=== PATIENT | male | born 1960 | race Caucasian/White ===

== ENCOUNTER 2019-06-20 14:23 | Inpatient (IN) | payer OTHER ==
[~2019-06-20] VITALS: Ht 154.9 cm; Wt 64.6 kg
[2019-06-20 14:29] VITALS: BP 155/85
[2019-06-20 15:10] LABS: HEMATOCRIT 43.1 % (42.0-52.0); HEMOGLOBIN 14.3 g/dl (14.0-18.0); MEAN CORPUSCULAR HGB 31.8 pg (27.0-31.0); MEAN CORPUSCULAR HGB CONC 33.2 g/dl (33.0-37.0); MEAN PLATELET VOLUME 11.1 fl (9.6-12.3); PLATELET COUNT AUTOMATED 264 10*3/uL (130-400); RED BLOOD COUNT 4.49 10*6/uL (4.50-5.90); RED CELL DISTRI WIDTH 12.3 % (0-14.5); WHITE BLOOD COUNT 23.7 10*3/uL (4.8-10.8)
[2019-06-20 15:28] LABS: ACT PARTIAL THROMBO TIME 31.6 SECONDS (20.0-32.1); INTERNATIONAL NORM RATIO 1.1 (2.0-3.5)
[2019-06-20 15:29] LABS: ALBUMIN 3.3 gm/dl (3.1-4.5); ALKALINE PHOSPHATASE 110 U/L (45-117); BUN 10 mg/dl (7-24); CHLORIDE 103 mmol/L (98-107); POTASSIUM 3.7 mmol/L (3.5-5.1); SGOT/AST 18 IU/L (3-35); SGPT/ALT 26 U/L (12-78); SODIUM 138 mmol/L (136-145); TOTAL PROTEIN 7.7 gm/dL (6.4-8.2)
[2019-06-20 15:30] LABS: BASOPHILS 1 % (0-1); PLATELET SUFFICIENCY NORMAL (NORMAL); TOTAL CELLS COUNTED 100 #CELLS; TROPONIN I < 0.015 ng/ml (<0.045)
[2019-06-20 16:18] VITALS: BP 150/80
[2019-06-20 18:00] VITALS: BP 172/96
--- NOTE | 2019-06-20 18:10 | NUR ---
A 58, admitted to , under the services of DEEPA Yanes DO with a diagnosis of HYPOXIA,SEPSIS,PNEUMONITIS. Chief complaint is SOB. Patient arrived via bed from ER. Monitor applied. Initial assessment completed. Vital signs taken and recorded. DEEPA YANES DO notified of admission to the unit. Orders received. See assessment for past medical history, medications and allergies. Patient and/or family oriented to unit. [facility]. Clothing/patient valuable form completed. JOCE DENT
[2019-06-20 20:00] VITALS: BP 141/79
[2019-06-21] VITALS: BP 138/77
--- NOTE | 2019-06-21 06:14 | NUR ---
PATIENT SLEPT THROUGH NIGHT WITH NO COMPLAINTS. NASAL CANNULA AT 3L. PATIENT WEARING. CALL LIGHT WITHIN REACH. WILL CONTINUE TO MONITOR.
[2019-06-21 07:19] LABS: HEMATOCRIT 38.8 % (42.0-52.0); HEMOGLOBIN 12.7 g/dl (14.0-18.0); MEAN CELL VOLUME 96.3 fl (80.0-94.0); MEAN CORPUSCULAR HGB 31.5 pg (27.0-31.0); MEAN CORPUSCULAR HGB CONC 32.7 g/dl (33.0-37.0); MEAN PLATELET VOLUME 11.4 fl (9.6-12.3); PLATELET COUNT AUTOMATED 251 10*3/uL (130-400); RED BLOOD COUNT 4.03 10*6/uL (4.50-5.90); RED CELL DISTRI WIDTH 12.4 % (0-14.5); WHITE BLOOD COUNT 19.7 10*3/uL (4.8-10.8)
[2019-06-21 07:28] LABS: BUN 11 mg/dl (7-24); CHLORIDE 107 mmol/L (98-107); CREATININE 0.67 mg/dL (0.70-1.30); POTASSIUM 3.9 mmol/L (3.5-5.1); SODIUM 139 mmol/L (136-145)
[2019-06-21 07:31] LABS: CHOLESTEROL 133 mg/dL (<200); HDL CHOLESTEROL 35 mg/dl (40-60); LDL CHOLESTEROL 85 mg/dL (9-159); PHOSPHOROUS 2.2 mg/dL (2.5-4.9); TRIGLYCERIDES 66 mg/dl (<150); VLDL CHOLESTEROL 13 mg/dL (6-40)
[2019-06-21 07:51] LABS: PLATELET SUFFICIENCY NORMAL (NORMAL); TOTAL CELLS COUNTED 100 #CELLS
[2019-06-21 08:00] VITALS: BP 132/56
[2019-06-21 08:56] LABS: VITAMIN D, 25-HYDROXY 11.9 ng/mL (30-100)
--- NOTE | 2019-06-21 09:00 | NUR ---
Director Of Testing in to talk to patient. Patient states lives at home with alone. There are no steps in the home. Physician: none at present Pharmacy: none at present Home health services: none Patient's level of ADLs: INDEPENDENT Patient has working utilities: all working DME: none Follow-up physician's appointment after d/c: will be made by hospitalist nurse director upon discharge with doctor of patient's choice Does patient want to access PORTAL?: no Discharge plan discussed with patient, he states he lives at home alone, is independent in adls and ambulation, works, drives, he states he will return home when medically stable and denies any home needs. BRENDON LUKE
[2019-06-21 12:00] VITALS: BP 142/68
--- NOTE | 2019-06-21 14:45 | NUR ---
NOTIFIED OF CONSULT
[2019-06-21 16:00] VITALS: BP 147/67
--- NOTE | 2019-06-21 16:10 | NUR ---
Nursing screen received and chart reviewed. Patient admitted for SOB. If patient has a decline in ADLs, transfers, or functional mobility, please send OT orders. Thank you. Lyly Valle, OTR/L
[2019-06-21 20:00] VITALS: BP 128/65
--- NOTE | 2019-06-21 20:36 | NUR ---
PATIENT COMPLAINING OF HEARTBURN. NOTIFIED DR KHAN AND ORDERS RECIEVED TO PUT IN FOR TUMS.
[2019-06-22] VITALS: BP 149/65
--- NOTE | 2019-06-22 01:05 | NUR ---
Patient resting quietly with no c/o discomfort. Respirations easy and regular. Vital signs stable. No overt distress. DENNIS RIVERA
[2019-06-22 06:33] LABS: BASO % 0.2 % (0.0-1.0); EOS # 0.1 10*3/uL (0.0-0.4); EOS % 0.2 % (1.0-4.0); HEMATOCRIT 38.4 % (42.0-52.0); HEMOGLOBIN 12.7 g/dl (14.0-18.0); LYMPH % 4.9 % (27.0-41.0); MEAN CELL VOLUME 96.2 fl (80.0-94.0); MEAN CORPUSCULAR HGB 31.8 pg (27.0-31.0); MEAN CORPUSCULAR HGB CONC 33.1 g/dl (33.0-37.0); MEAN PLATELET VOLUME 12.1 fl (9.6-12.3); MONO # 0.8 10*3/uL (0.1-1.0); NEUT # 18.7 10*3/uL (2.3-7.9); NEUT % 89.7 % (47.0-73.0); PLATELET COUNT AUTOMATED 281 10*3/uL (130-400); RED BLOOD COUNT 3.99 10*6/uL (4.50-5.90); RED CELL DISTRI WIDTH 12.7 % (0-14.5); WHITE BLOOD COUNT 20.9 10*3/uL (4.8-10.8)
[2019-06-22 07:06] LABS: BUN 13 mg/dl (7-24); CHLORIDE 109 mmol/L (98-107); POTASSIUM 3.8 mmol/L (3.5-5.1); SODIUM 142 mmol/L (136-145)
[2019-06-22 07:07] LABS: CREATININE 0.68 mg/dL (0.70-1.30)
--- NOTE | 2019-06-22 07:38 | NUR ---
PHYSICAL THERAPY Screen received pt from home admitted with sepsis and SOB please consult PT if pt's functional status declines below baseline, thank you. Lissa Adler PT
[2019-06-22 08:00] VITALS: BP 145/71
--- NOTE | 2019-06-22 08:00 | NUR ---
IN TO ROOM. PATIENT AWAKE, ALERT AND ORIENTED SITTING UP IN BED. NO STATED COMPLAINTS AT THIS TIME. PT DENIES ANY PAIN. MOIST COUGH NOTED. BED IN LOWEST LOCKED POSITION AND CALL LIGHT WITHIN REACH. WILL CONTINUE TO MONITOR.
--- NOTE | 2019-06-22 09:00 | NUR ---
case management visits with patient, he states he will reutrn home when medically stable and denies any home needs
--- NOTE | 2019-06-22 11:00 | NUR ---
PT COMPLAINS OF SORE IN MOUTH. DR DILL NOTIFIED OF COMPLAINT.
[2019-06-22 12:00] VITALS: BP 138/69
--- NOTE | 2019-06-22 15:37 | NUR ---
PT GIVEN TUMS FOR HEARTBURN. WILL MONITOR FOR EFFECTIVENESS. PT LYING IN BED. HOB ELEVATED. RESPIRATIONS UNLABORED ON 2L NC. CALL LIGHT IN REACH.
[2019-06-22 16:00] VITALS: BP 123/50; BP 142/82
--- NOTE | 2019-06-22 16:30 | NUR ---
Hep Lock discontinued to right antecubital due to site leaking. Site asymptomatic. Pressure applied. Sterile dressing applied. MIMI SCHWARTZ
--- NOTE | 2019-06-22 16:37 | NUR ---
TUMS EFFECTIVE PER PT.
--- NOTE | 2019-06-22 16:40 | NUR ---
[facility] STUDENT NURSE STATES THAT THEY WILL RESTART A NEW SITE ON PATIENT WITH INSTRUCTOR. PT IS AGREEABLE.
--- NOTE | 2019-06-22 17:00 | NUR ---
PT HAS NEW IV SITE IN RIGHT ARM.
[2019-06-22 20:00] VITALS: BP 156/82
[2019-06-23] VITALS: BP 153/88
--- NOTE | 2019-06-23 05:47 | NUR ---
Hep Lock discontinued. Site asymptomatic. Pressure applied. Sterile dressing applied. GAIL CHANEL IV started right antecubital with #22 protective cath after 0 attempts. Site prepped with Chloroprep. Sterile dressing applied. Patient tolerated procedure well. GAIL CHANEL
[2019-06-23 06:35] LABS: HEMATOCRIT 41.1 % (42.0-52.0); HEMOGLOBIN 13.4 g/dl (14.0-18.0); MEAN CELL VOLUME 96.3 fl (80.0-94.0); MEAN CORPUSCULAR HGB 31.4 pg (27.0-31.0); MEAN CORPUSCULAR HGB CONC 32.6 g/dl (33.0-37.0); MEAN PLATELET VOLUME 11.8 fl (9.6-12.3); PLATELET COUNT AUTOMATED 332 10*3/uL (130-400); RED BLOOD COUNT 4.27 10*6/uL (4.50-5.90); RED CELL DISTRI WIDTH 12.9 % (0-14.5); WHITE BLOOD COUNT 21.7 10*3/uL (4.8-10.8)
[2019-06-23 07:38] LABS: ATYPICAL LYMPHS 4 % (0-0); PLATELET SUFFICIENCY NORMAL (NORMAL); TOTAL CELLS COUNTED 100 #CELLS
[2019-06-23 08:00] VITALS: BP 153/81
--- NOTE | 2019-06-23 08:14 | NUR ---
TOOK OVER CARE OF PT AT THIS TIME. PT RESTING IN BED, HOB ELEVATED. PT IS TAKING A BREATHING TREATMENT AT THIS TIME. PT DENIES NEEDING ANYTHING. NO S/S OF DISTRESS. CALL LIGHT IN REACH.
[2019-06-23 12:00] VITALS: BP 170/90
[2019-06-23 13:12] VITALS: BP 158/78
--- NOTE | 2019-06-23 13:12 | NUR ---
PT RESTING IN BED AT THIS TIME. NO S/S OF DISTRESS. BP OBTAINED MANUALLY. PT RESPIRATIONS ARE UNLABORED ON ROOM AIR. POX IS 95% ON ROOM AIR. WILL CONTINUE TO MONITOR. CALL LIGHT IN REACH.
[2019-06-23 16:00] VITALS: BP 155/76
[2019-06-23 20:00] VITALS: BP 146/59
[2019-06-24] VITALS: BP 133/74
--- NOTE | 2019-06-24 06:29 | NUR ---
[facility] [phone]- "PT'S RIDE HOME"
[2019-06-24 06:30] LABS: HEMATOCRIT 40.9 % (42.0-52.0); HEMOGLOBIN 13.4 g/dl (14.0-18.0); MEAN CELL VOLUME 95.8 fl (80.0-94.0); MEAN CORPUSCULAR HGB 31.4 pg (27.0-31.0); MEAN CORPUSCULAR HGB CONC 32.8 g/dl (33.0-37.0); MEAN PLATELET VOLUME 11.7 fl (9.6-12.3); PLATELET COUNT AUTOMATED 351 10*3/uL (130-400); RED BLOOD COUNT 4.27 10*6/uL (4.50-5.90); RED CELL DISTRI WIDTH 12.9 % (0-14.5); WHITE BLOOD COUNT 21.4 10*3/uL (4.8-10.8)
[2019-06-24 07:56] LABS: ATYPICAL LYMPHS 1 % (0-0); PLATELET SUFFICIENCY NORMAL (NORMAL); TOTAL CELLS COUNTED 100 #CELLS
[2019-06-24 08:00] VITALS: BP 157/88
--- NOTE | 2019-06-24 11:50 | NUR ---
ASSESS FOR HOME OXYGEN ROOM AIR AT REST: SPO2 97% HR 98 RR 20 BP 148/74 ROOM AIR WITH AMBULATION: SPO2 90-94% HR 106-118 ROOM AIR RECOVERY: SPO2 95% HR 106 RR 24 BP 159/76 PT. DID NOT REQUIRE SUPPLEMENTAL O2 AT REST OR DURING AMBULATION. RESULTS REPORTED TO DR. JOHANSEN.
[2019-06-24 12:00] VITALS: BP 142/79
[2019-06-24] MEDS ORDERED: SYMB80 INH (12:07)
[2019-06-24] MEDS ORDERED: PREDNISONE10 MG PO (12:07)
[2019-06-24] MEDS ORDERED: VITAMIN D32000 UNI1 PO (12:07)
[2019-06-24] MEDS ORDERED: ZITHROMAX250 MG PO (12:07)
[2019-06-24] MEDS ORDERED: CLOTRIMAZOLE TR10 MG PO (12:07)
[2019-06-24] MEDS ORDERED: PROAIR HFA8.5 GM INH (12:07)
[2019-06-24] MEDS ORDERED: MUCINEX ER600 MG PO (12:07)
[2019-06-24] MEDS ORDERED: Ipratropium Brom3 ML INH (12:12)
--- NOTE | 2019-06-24 13:50 | NUR ---
Discharge instructions reviewed with patient/family. Patient receptive and verbalizes understanding. Follow-up care arranged. Written instructions given to patient/family. HEPLOCK DISCONTINUED. PRESCRIPTIONS GIVEN. PATIENT AMBULATORY OFF FLOOR. MAHI ALONZO
== END 2019-06-24 13:50 | disposition home or self-care (01) | DRG 871 ==
LOC: ED 14:23 → 4E 16:40 → EDHOLD 16:40 → 4E 17:48 → 5E 06-24 08:17
PROVIDERS: Emergency Medicine; Internal Medicine; ADMIT Internal Medicine
DX: A41.9 Sepsis, unspecified organism (principal); J18.9 Pneumonia, unspecified organism; J96.01 Acute respiratory failure with hypoxia; F17.210 Nicotine dependence, cigarettes, uncomplicated; D53.9 Nutritional anemia, unspecified; E83.39 Other disorders of phosphorus metabolism; J43.9 Emphysema, unspecified; R73.9 Hyperglycemia, unspecified; J20.9 Acute bronchitis, unspecified; E83.41 Hypermagnesemia; T38.0X5A Adverse effect of glucocorticoids and synthetic analogues, initial encounter; Y92.89 Other specified places as the place of occurrence of the external cause; Z71.6 Tobacco abuse counseling; Z87.442 Personal history of urinary calculi; Z80.3 Family history of malignant neoplasm of breast

== ENCOUNTER → 2019-07-06 | Outpatient (CLI) | payer OTHER ==
[~2019-07-06] MED LIST: CLOTRIMAZOLE TR10 MG PO; Ipratropium Brom3 ML INH; MUCINEX ER600 MG PO; PREDNISONE10 MG PO; PROAIR HFA8.5 GM INH; SYMB80 INH; VITAMIN D32000 UNI1 PO; ZITHROMAX250 MG PO
[2019-07-06 18:26] LABS: BASO # 0.1 10*3/uL (0.0-0.1); BASO % 0.7 % (0.0-1.0); EOS # 0.1 10*3/uL (0.0-0.4); EOS % 1.2 % (1.0-4.0); HEMATOCRIT 41.7 % (42.0-52.0); HEMOGLOBIN 13.4 g/dl (14.0-18.0); LYMPH # 1.7 10*3/uL (1.3-4.4); LYMPH % 18.1 % (27.0-41.0); MEAN CELL VOLUME 97.4 fl (80.0-94.0); MEAN CORPUSCULAR HGB 31.3 pg (27.0-31.0); MEAN CORPUSCULAR HGB CONC 32.1 g/dl (33.0-37.0); MEAN PLATELET VOLUME 10.8 fl (9.6-12.3); MONO # 1.5 10*3/uL (0.1-1.0); MONO % 16.3 % (3.0-9.0); NEUT # 5.8 10*3/uL (2.3-7.9); NEUT % 63.3 % (47.0-73.0); PLATELET COUNT AUTOMATED 341 10*3/uL (130-400); RED BLOOD COUNT 4.28 10*6/uL (4.50-5.90); RED CELL DISTRI WIDTH 13.4 % (0-14.5); WHITE BLOOD COUNT 9.2 10*3/uL (4.8-10.8)
[2019-07-06 18:40] LABS: BUN 13 mg/dl (7-24); CHLORIDE 105 mmol/L (98-107); POTASSIUM 3.5 mmol/L (3.5-5.1); SODIUM 138 mmol/L (136-145)
== END | disposition home or self-care (01) ==
LOC: LAB 17:39
PROVIDERS: Internal Medicine
DX: A41.9 Sepsis, unspecified organism (principal)

== ENCOUNTER 2021-03-24 11:12 | Inpatient (IN) | payer OTHER ==
[~2021-03-24] VITALS: Ht 180.3 cm; Wt 56.9 kg
[2021-03-24 11:33] VITALS: BP 161/82; BP 98/73
[2021-03-24 11:45] LABS: ACT PARTIAL THROMBO TIME 26.5 SECONDS (20.0-32.1); INTERNATIONAL NORM RATIO 1.1 (2.0-3.5)
[2021-03-24 11:52] LABS: ALBUMIN 2.9 gm/dl (3.1-4.5); ALKALINE PHOSPHATASE 108 U/L (45-117); BUN 14 mg/dl (7-24); CHLORIDE 99 mmol/L (98-107); CREATININE 0.63 mg/dL (0.70-1.30); POTASSIUM 4.3 mmol/L (3.5-5.1); SGOT/AST 17 IU/L (3-35); SGPT/ALT 22 U/L (12-78); SODIUM 136 mmol/L (136-145); TOTAL PROTEIN 8.1 gm/dL (6.4-8.2)
[2021-03-24 11:53] LABS: TROPONIN I 0.024 ng/ml (<0.045)
[2021-03-24 12:01] LABS: MEAN CELL VOLUME 95.8 fl (80.0-94.0); MEAN CORPUSCULAR HGB 31.9 pg (27.0-31.0); MEAN CORPUSCULAR HGB CONC 33.3 g/dl (33.0-37.0); MEAN PLATELET VOLUME 11.9 fl (9.6-12.3); PLATELET COUNT AUTOMATED 253 10*3/uL (130-400); RED CELL DISTRI WIDTH 11.9 % (0-14.5); WHITE BLOOD COUNT 19.9 10*3/uL (4.8-10.8)
[2021-03-24 12:19] LABS: PLATELET SUFFICIENCY NORMAL (NORMAL); TOTAL CELLS COUNTED 100 #CELLS
[2021-03-24 16:23] LABS: BILIRUBIN 1+ (Negative); BLOOD Trace-Lysed (Negative); CLARITY Clear (Clear); COLOR Dark Yellow (Yellow); GLUCOSE Negative (Negative); KETONE Trace (Negative); LEUKO ESTERASE Negative (Negative); NITRITE Negative (Negative); PH 5.5 (4.5-8.0); SPECIFIC GRAVITY >= 1.030 (1.001-1.030)
[2021-03-24 16:43] LABS: MUCOUS 1+
[2021-03-24 20:03] VITALS: BP 149/76
[2021-03-24 20:15] VITALS: BP 154/80
[2021-03-24] MEDS ORDERED: VENT7GM INH (20:42)
[2021-03-25] VITALS: BP 147/71
[2021-03-25 06:50] LABS: BASO % 0.2 % (0.0-1.0); HEMATOCRIT 40.7 % (42.0-52.0); LYMPH # 0.7 10*3/uL (1.3-4.4); LYMPH % 5.4 % (27.0-41.0); MEAN CELL VOLUME 97.6 fl (80.0-94.0); MEAN CORPUSCULAR HGB 31.9 pg (27.0-31.0); MEAN CORPUSCULAR HGB CONC 32.7 g/dl (33.0-37.0); MEAN PLATELET VOLUME 11.6 fl (9.6-12.3); MONO # 1.4 10*3/uL (0.1-1.0); MONO % 10.7 % (3.0-9.0); NEUT # 10.8 10*3/uL (2.3-7.9); NEUT % 83.3 % (47.0-73.0); PLATELET COUNT AUTOMATED 244 10*3/uL (130-400); RED BLOOD COUNT 4.17 10*6/uL (4.50-5.90); RED CELL DISTRI WIDTH 11.9 % (0-14.5); WHITE BLOOD COUNT 12.9 10*3/uL (4.8-10.8)
[2021-03-25 07:08] LABS: ALBUMIN 2.4 gm/dl (3.1-4.5); BUN 15 mg/dl (7-24); CHLORIDE 99 mmol/L (98-107); POTASSIUM 4.6 mmol/L (3.5-5.1); SGOT/AST 11 IU/L (3-35); SGPT/ALT 21 U/L (12-78); SODIUM 136 mmol/L (136-145)
[2021-03-25 07:16] LABS: ALKALINE PHOSPHATASE 91 U/L (45-117); CHOLESTEROL 148 mg/dL (<200); CREATININE 0.48 mg/dL (0.70-1.30); LDL CHOLESTEROL 98 mg/dL (9-159); TOTAL PROTEIN 6.5 gm/dL (6.4-8.2); TRIGLYCERIDES 57 mg/dl (<150)
[2021-03-25 08:00] VITALS: BP 134/74
[2021-03-25 12:00] VITALS: BP 146/84
[2021-03-25 12:12] LABS: BILIRUBIN Negative (Negative); BLOOD Negative (Negative); CLARITY Clear (Clear); COLOR Yellow (Yellow); GLUCOSE Negative (Negative); KETONE Negative (Negative); LEUKO ESTERASE Negative (Negative); NITRITE Negative (Negative); SPECIFIC GRAVITY >= 1.030 (1.001-1.030)
[2021-03-25 14:08] LABS: BACTERIA TRACE; MUCOUS 1+
[2021-03-25 16:00] VITALS: BP 158/74
[2021-03-25 20:00] VITALS: BP 139/77
[2021-03-26] VITALS: BP 130/71
[2021-03-26 06:28] LABS: BASO % 0.2 % (0.0-1.0); HEMATOCRIT 40.2 % (42.0-52.0); LYMPH % 7.1 % (27.0-41.0); MEAN CELL VOLUME 98.3 fl (80.0-94.0); MEAN CORPUSCULAR HGB CONC 32.6 g/dl (33.0-37.0); MEAN PLATELET VOLUME 11.1 fl (9.6-12.3); MONO % 7.7 % (3.0-9.0); NEUT # 11.3 10*3/uL (2.3-7.9); NEUT % 84.3 % (47.0-73.0); PLATELET COUNT AUTOMATED 288 10*3/uL (130-400); RED BLOOD COUNT 4.09 10*6/uL (4.50-5.90); RED CELL DISTRI WIDTH 11.8 % (0-14.5); WHITE BLOOD COUNT 13.4 10*3/uL (4.8-10.8)
[2021-03-26 06:50] LABS: BUN 15 mg/dl (7-24); CHLORIDE 99 mmol/L (98-107); POTASSIUM 4.3 mmol/L (3.5-5.1); SODIUM 137 mmol/L (136-145)
[2021-03-26 06:51] LABS: CREATININE 0.52 mg/dL (0.70-1.30)
[2021-03-26 08:00] VITALS: BP 125/75
[2021-03-26 12:00] VITALS: BP 135/75
[2021-03-26 16:00] VITALS: BP 129/95
[2021-03-26 20:00] VITALS: BP 162/81
[2021-03-27] VITALS: BP 114/54; BP 143/82
[2021-03-27 06:10] LABS: BUN 13 mg/dl (7-24); CHLORIDE 100 mmol/L (98-107); POTASSIUM 4.3 mmol/L (3.5-5.1); SODIUM 138 mmol/L (136-145)
[2021-03-27 06:18] LABS: BASO % 0.3 % (0.0-1.0); EOS % 0.2 % (1.0-4.0); HEMATOCRIT 42.8 % (42.0-52.0); LYMPH # 0.8 10*3/uL (1.3-4.4); LYMPH % 5.9 % (27.0-41.0); MEAN CELL VOLUME 97.5 fl (80.0-94.0); MEAN CORPUSCULAR HGB 31.2 pg (27.0-31.0); MEAN PLATELET VOLUME 11.4 fl (9.6-12.3); MONO # 0.5 10*3/uL (0.1-1.0); MONO % 3.5 % (3.0-9.0); NEUT # 12.4 10*3/uL (2.3-7.9); NEUT % 88.6 % (47.0-73.0); PLATELET COUNT AUTOMATED 324 10*3/uL (130-400); RED BLOOD COUNT 4.39 10*6/uL (4.50-5.90); RED CELL DISTRI WIDTH 11.7 % (0-14.5)
[2021-03-27 08:00] VITALS: BP 159/67
[2021-03-27 12:00] VITALS: BP 147/80
[2021-03-27 16:00] VITALS: BP 128/88
[2021-03-27 20:00] VITALS: BP 148/88
[2021-03-28] VITALS: BP 129/72
[2021-03-28 06:50] LABS: HEMATOCRIT 42.9 % (42.0-52.0); MEAN CELL VOLUME 98.2 fl (80.0-94.0); MEAN CORPUSCULAR HGB 31.8 pg (27.0-31.0); MEAN CORPUSCULAR HGB CONC 32.4 g/dl (33.0-37.0); MEAN PLATELET VOLUME 10.8 fl (9.6-12.3); PLATELET COUNT AUTOMATED 346 10*3/uL (130-400); RED BLOOD COUNT 4.37 10*6/uL (4.50-5.90); RED CELL DISTRI WIDTH 11.9 % (0-14.5); WHITE BLOOD COUNT 17.1 10*3/uL (4.8-10.8)
[2021-03-28 07:00] LABS: ALBUMIN 2.5 gm/dl (3.1-4.5); BUN 15 mg/dl (7-24); CHLORIDE 102 mmol/L (98-107); POTASSIUM 4.2 mmol/L (3.5-5.1); SODIUM 140 mmol/L (136-145)
[2021-03-28 07:04] LABS: ALKALINE PHOSPHATASE 78 U/L (45-117); CREATININE 0.54 mg/dL (0.70-1.30); SGOT/AST 12 IU/L (3-35); SGPT/ALT 40 U/L (12-78)
[2021-03-28 07:51] LABS: ATYPICAL LYMPHS 2 % (0-0); PLATELET SUFFICIENCY NORMAL (NORMAL); TOTAL CELLS COUNTED 100 #CELLS
[2021-03-28 08:00] VITALS: BP 150/85
[2021-03-28] MEDS ORDERED: PREDNISONE10 MG PO (11:38)
[2021-03-28] MEDS ORDERED: LEVOFLOXACIN500 MG PO (11:38)
[2021-03-28] MEDS ORDERED: SYMB160 INH (11:40)
[2021-03-28 12:00] VITALS: BP 154/84
== END 2021-03-28 18:37 | disposition home or self-care (01) | DRG 871 ==
LOC: ED 11:12 → EDHOLD 13:55 → 4E 13:55 → EDHOLD 13:56 → 4E 17:35
PROVIDERS: Internal Medicine; Student in an Organized Health Care Education/Training Program; ADMIT Internal Medicine; ATTEND Internal Medicine
DX: A41.9 Sepsis, unspecified organism (principal); J96.01 Acute respiratory failure with hypoxia; J18.9 Pneumonia, unspecified organism; J44.1 Chronic obstructive pulmonary disease with (acute) exacerbation; J44.0 Chronic obstructive pulmonary disease with (acute) lower respiratory infection; R73.9 Hyperglycemia, unspecified; Z20.822 Contact with and (suspected) exposure to COVID-19; E55.9 Vitamin D deficiency, unspecified; F17.210 Nicotine dependence, cigarettes, uncomplicated; D64.9 Anemia, unspecified; Z71.6 Tobacco abuse counseling; Z79.899 Other long term (current) drug therapy; Z80.3 Family history of malignant neoplasm of breast; Z79.51 Long term (current) use of inhaled steroids

== ENCOUNTER 2021-05-25 13:52 | Inpatient (IN) | payer OTHER ==
[2021-05-25] VITALS (8 sets, daily range): BP systolic 119–167; BP diastolic 71–100
[~2021-05-25] VITALS: Ht 180.3 cm; Wt 54.1 kg
[~2021-05-25 13:52] MED LIST changes: +LEVOFLOXACIN500 MG PO; +SYMB160 INH; +VENT7GM INH
[2021-05-25 14:15] LABS: ARTERIAL BLOOD GAS PH 7.281 (7.35-7.45); ARTERIAL BLOOD GAS PO2 153.2 (80-90)
[2021-05-25] MEDS ORDERED: BUDESONIDE0.5 MG/2 M INH (14:15)
[2021-05-25] MEDS ORDERED: BUSPAR5 MG PO ×2 (14:16→18:20)
[2021-05-25 14:36] LABS: BASO % 0.2 % (0.0-1.0); EOS % 0.1 % (1.0-4.0); HEMATOCRIT 46.4 % (42.0-52.0); LYMPH # 0.6 10*3/uL (1.3-4.4); LYMPH % 3.8 % (27.0-41.0); MEAN CELL VOLUME 93.9 fl (80.0-94.0); MEAN CORPUSCULAR HGB 31.4 pg (27.0-31.0); MEAN CORPUSCULAR HGB CONC 33.4 g/dl (33.0-37.0); MEAN PLATELET VOLUME 10.6 fl (9.6-12.3); MONO # 1.2 10*3/uL (0.1-1.0); MONO % 8.4 % (3.0-9.0); NEUT # 12.8 10*3/uL (2.3-7.9); NEUT % 87.2 % (47.0-73.0); PLATELET COUNT AUTOMATED 291 10*3/uL (130-400); RED BLOOD COUNT 4.94 10*6/uL (4.50-5.90); RED CELL DISTRI WIDTH 13.8 % (0-14.5); WHITE BLOOD COUNT 14.6 10*3/uL (4.8-10.8)
[2021-05-25 14:46] LABS: ACT PARTIAL THROMBO TIME 31.6 SECONDS (20.0-32.1); INTERNATIONAL NORM RATIO 1.1 (2.0-3.5)
[2021-05-25 14:51] LABS: ALBUMIN 3.4 gm/dl (3.1-4.5); ALKALINE PHOSPHATASE 114 U/L (45-117); BUN 6 mg/dl (7-24); CHLORIDE 102 mmol/L (98-107); CPK 69 U/L (39-308); CREATININE 0.52 mg/dL (0.70-1.30); POTASSIUM 4.2 mmol/L (3.5-5.1); SGOT/AST 10 IU/L (3-35); SGPT/ALT 18 U/L (12-78); SODIUM 137 mmol/L (136-145); TOTAL PROTEIN 7.2 gm/dL (6.4-8.2)
[2021-05-25 17:49] LABS: BILIRUBIN Negative (Negative); BLOOD Negative (Negative); CLARITY Clear (Clear); COLOR Yellow (Yellow); GLUCOSE Negative (Negative); KETONE Negative (Negative); LEUKO ESTERASE Negative (Negative); NITRITE Negative (Negative); UROBILINOGEN 0.2 E.U./dl (0.0-1.0)
[2021-05-25] MEDS ORDERED: PREDNISONE10 M1 PO (18:15)
[2021-05-25] MEDS ORDERED: PREDNISONE10 MG PO (18:20)
[2021-05-25] MEDS ORDERED: Ipratropium Brom3 ML INH (18:22)
[2021-05-25] MEDS ORDERED: PULMICORT RESP0.5 M1 INH (18:22)
[2021-05-25] MEDS ORDERED: VENT7GM INH (18:22)
[2021-05-25 18:30] LABS: BACTERIA TRACE; EPITHELIAL CELLS 0-2; WBC 0-2 wbc/hpf (0-5)
[2021-05-25] MEDS ORDERED: BUSPIRONE HCL10 MG PO (23:17)
[2021-05-25] MEDS ORDERED: PREDNISONE5 MG PO (23:20)
[2021-05-26] VITALS: BP 160/82
[2021-05-26 06:57] LABS: ALBUMIN 2.8 gm/dl (3.1-4.5); BUN 7 mg/dl (7-24); CHLORIDE 105 mmol/L (98-107); CREATININE 0.46 mg/dL (0.70-1.30); SGOT/AST 4 IU/L (3-35); SGPT/ALT 15 U/L (12-78); SODIUM 140 mmol/L (136-145); TOTAL PROTEIN 6.1 gm/dL (6.4-8.2)
[2021-05-26 06:58] LABS: ALKALINE PHOSPHATASE 85 U/L (45-117)
[2021-05-26 06:59] LABS: HEMATOCRIT 40.6 % (42.0-52.0); LYMPH # 0.4 10*3/uL (1.3-4.4); LYMPH % 6.7 % (27.0-41.0); MEAN CELL VOLUME 96.9 fl (80.0-94.0); MEAN CORPUSCULAR HGB 31.3 pg (27.0-31.0); MEAN CORPUSCULAR HGB CONC 32.3 g/dl (33.0-37.0); MEAN PLATELET VOLUME 10.9 fl (9.6-12.3); MONO # 0.5 10*3/uL (0.1-1.0); MONO % 9.8 % (3.0-9.0); NEUT # 4.3 10*3/uL (2.3-7.9); NEUT % 83.1 % (47.0-73.0); PLATELET COUNT AUTOMATED 239 10*3/uL (130-400); RED BLOOD COUNT 4.19 10*6/uL (4.50-5.90); RED CELL DISTRI WIDTH 13.6 % (0-14.5); WHITE BLOOD COUNT 5.2 10*3/uL (4.8-10.8)
[2021-05-26 08:25] VITALS: BP 168/80
[2021-05-26 08:34] LABS: VITAMIN D, 25-HYDROXY 10.4 ng/mL (30-100)
[2021-05-26 09:20] VITALS: BP 150/76
[2021-05-26 11:58] VITALS: BP 149/83
[2021-05-26 20:00] VITALS: BP 164/85
[2021-05-27] VITALS: BP 162/88; BP 165/117
[2021-05-27 06:34] LABS: BASO % 0.1 % (0.0-1.0); HEMATOCRIT 42.3 % (42.0-52.0); LYMPH # 0.3 10*3/uL (1.3-4.4); LYMPH % 3.5 % (27.0-41.0); MEAN CELL VOLUME 95.9 fl (80.0-94.0); MEAN CORPUSCULAR HGB 31.5 pg (27.0-31.0); MEAN CORPUSCULAR HGB CONC 32.9 g/dl (33.0-37.0); MEAN PLATELET VOLUME 10.6 fl (9.6-12.3); MONO # 0.7 10*3/uL (0.1-1.0); MONO % 7.4 % (3.0-9.0); NEUT # 8.5 10*3/uL (2.3-7.9); NEUT % 88.7 % (47.0-73.0); PLATELET COUNT AUTOMATED 255 10*3/uL (130-400); RED BLOOD COUNT 4.41 10*6/uL (4.50-5.90); RED CELL DISTRI WIDTH 13.6 % (0-14.5); WHITE BLOOD COUNT 9.6 10*3/uL (4.8-10.8)
[2021-05-27 06:50] LABS: ALBUMIN 3.1 gm/dl (3.1-4.5); ALKALINE PHOSPHATASE 91 U/L (45-117); BUN 7 mg/dl (7-24); CHLORIDE 100 mmol/L (98-107); CREATININE 0.43 mg/dL (0.70-1.30); SGOT/AST 9 IU/L (3-35); SGPT/ALT 16 U/L (12-78); SODIUM 137 mmol/L (136-145); TOTAL PROTEIN 6.4 gm/dL (6.4-8.2)
[2021-05-27 08:00] VITALS: BP 172/90
[2021-05-27 12:00] VITALS: BP 153/96
[2021-05-27 16:00] VITALS: BP 177/88
[2021-05-27 20:00] VITALS: BP 154/51
[2021-05-28] VITALS: BP 156/88; BP 156/92
[2021-05-28 06:13] LABS: BASO % 0.1 % (0.0-1.0); EOS % 0.2 % (1.0-4.0); HEMATOCRIT 44.5 % (42.0-52.0); LYMPH # 0.7 10*3/uL (1.3-4.4); LYMPH % 8.5 % (27.0-41.0); MEAN CELL VOLUME 97.4 fl (80.0-94.0); MEAN CORPUSCULAR HGB 30.9 pg (27.0-31.0); MEAN CORPUSCULAR HGB CONC 31.7 g/dl (33.0-37.0); MEAN PLATELET VOLUME 10.7 fl (9.6-12.3); MONO # 1.2 10*3/uL (0.1-1.0); MONO % 14.2 % (3.0-9.0); NEUT # 6.4 10*3/uL (2.3-7.9); NEUT % 76.6 % (47.0-73.0); PLATELET COUNT AUTOMATED 238 10*3/uL (130-400); RED BLOOD COUNT 4.57 10*6/uL (4.50-5.90); RED CELL DISTRI WIDTH 13.5 % (0-14.5); WHITE BLOOD COUNT 8.3 10*3/uL (4.8-10.8)
[2021-05-28 06:54] LABS: BUN 7 mg/dl (7-24); CHLORIDE 93 mmol/L (98-107); CREATININE 0.51 mg/dL (0.70-1.30); POTASSIUM 3.6 mmol/L (3.5-5.1); SODIUM 137 mmol/L (136-145)
[2021-05-28 08:00] VITALS: BP 158/88
[2021-05-28 08:16] LABS: ABG BASE EXCESS 15.7 mmol/L (-2.0-2.0); ARTERIAL BLOOD GAS PH 7.395 (7.35-7.45); ARTERIAL BLOOD GAS PO2 100.8 (80-90)
[2021-05-28 12:00] VITALS: BP 126/73
[2021-05-28 16:00] VITALS: BP 155/87
[2021-05-28 20:00] VITALS: BP 148/84
[2021-05-29] VITALS: BP 137/86
[2021-05-29 08:00] VITALS: BP 143/86
[2021-05-29 08:20] LABS: ABG BASE EXCESS 15.5 mmol/L (-2.0-2.0); ARTERIAL BLOOD GAS PH 7.463 (7.35-7.45); ARTERIAL BLOOD GAS PO2 85.5 (80-90)
[2021-05-29 12:00] VITALS: BP 136/83
[2021-05-29 16:00] VITALS: BP 154/81
[2021-05-29 20:00] VITALS: BP 127/80
[2021-05-30] VITALS: BP 149/63
[2021-05-30 08:00] VITALS: BP 126/73
[2021-05-30 12:00] VITALS: BP 136/84
[2021-05-30 16:00] VITALS: BP 147/79
[2021-05-30 20:00] VITALS: BP 151/74
[2021-05-31] VITALS: BP 151/84
[2021-05-31 06:18] LABS: BASO % 0.1 % (0.0-1.0); HEMATOCRIT 39.6 % (42.0-52.0); LYMPH # 0.8 10*3/uL (1.3-4.4); MEAN CELL VOLUME 94.1 fl (80.0-94.0); MEAN CORPUSCULAR HGB 30.6 pg (27.0-31.0); MEAN CORPUSCULAR HGB CONC 32.6 g/dl (33.0-37.0); MEAN PLATELET VOLUME 10.8 fl (9.6-12.3); MONO # 0.8 10*3/uL (0.1-1.0); MONO % 9.2 % (3.0-9.0); NEUT # 7.1 10*3/uL (2.3-7.9); NEUT % 81.4 % (47.0-73.0); PLATELET COUNT AUTOMATED 269 10*3/uL (130-400); RED BLOOD COUNT 4.21 10*6/uL (4.50-5.90); RED CELL DISTRI WIDTH 13.8 % (0-14.5); WHITE BLOOD COUNT 8.8 10*3/uL (4.8-10.8)
[2021-05-31 06:26] LABS: ALKALINE PHOSPHATASE 82 U/L (45-117); BUN 10 mg/dl (7-24); CHLORIDE 102 mmol/L (98-107); CREATININE 0.54 mg/dL (0.70-1.30); POTASSIUM 3.8 mmol/L (3.5-5.1); SGOT/AST 8 IU/L (3-35); SGPT/ALT 21 U/L (12-78); SODIUM 139 mmol/L (136-145); TOTAL PROTEIN 6.1 gm/dL (6.4-8.2)
[2021-05-31 08:00] VITALS: BP 154/77
[2021-05-31 12:00] VITALS: BP 138/76
[2021-05-31 16:00] VITALS: BP 162/82
[2021-05-31 20:00] VITALS: BP 164/80
[2021-06-01] VITALS: BP 162/96
[2021-06-01 06:18] LABS: HEMATOCRIT 40.4 % (42.0-52.0); MEAN CORPUSCULAR HGB 31.4 pg (27.0-31.0); MEAN CORPUSCULAR HGB CONC 32.7 g/dl (33.0-37.0); MEAN PLATELET VOLUME 10.9 fl (9.6-12.3); PLATELET COUNT AUTOMATED 290 10*3/uL (130-400); RED BLOOD COUNT 4.21 10*6/uL (4.50-5.90); RED CELL DISTRI WIDTH 14.3 % (0-14.5); WHITE BLOOD COUNT 11.7 10*3/uL (4.8-10.8)
[2021-06-01 06:33] LABS: BUN 10 mg/dl (7-24); CHLORIDE 102 mmol/L (98-107); SODIUM 138 mmol/L (136-145)
[2021-06-01 06:48] LABS: PLATELET SUFFICIENCY NORMAL (NORMAL); TOTAL CELLS COUNTED 100 #CELLS
[2021-06-01 08:00] VITALS: BP 139/73
[2021-06-01 12:00] VITALS: BP 162/82
[2021-06-01] MEDS ORDERED: PREDNISONE10 MG PO (14:48)
[2021-06-01] MEDS ORDERED: LEVOFLOXACIN750 M2 PO (14:48)
[2021-06-01] MEDS ORDERED: VITAMIN D350 MC2 PO (14:48)
[2021-06-01 16:00] VITALS: BP 158/91
[2021-06-01 20:00] VITALS: BP 153/83
[2021-06-02] VITALS: BP 141/80
[2021-06-02 08:00] VITALS: BP 163/91
[2021-06-02] MEDS ORDERED: NORVASC5 MG PO (10:55)
== END 2021-06-02 12:31 | disposition home or self-care (01) | DRG 871 ==
LOC: ED 13:52 → 4E 15:27 → EDHOLD 15:27 → 4E 22:16
PROVIDERS: Emergency Medicine; Family Medicine; Hospitalist; Internal Medicine; Internal Medicine Critical Care Medicine; Registered Nurse; ADMIT Emergency Medicine; ATTEND Emergency Medicine
PROC: 5A09357 Assistance with Respiratory Ventilation, Less than 24 Consecutive Hours, Continuous Positive Airway Pressure (ICD-10-PCS; principal; 2021-05-25)
PROC: 5A09457 Assistance with Respiratory Ventilation, 24-96 Consecutive Hours, Continuous Positive Airway Pressure (ICD-10-PCS; 2021-05-26)
PROC: 5A09457 Assistance with Respiratory Ventilation, 24-96 Consecutive Hours, Continuous Positive Airway Pressure (ICD-10-PCS; 2021-05-29)
PROC: 5A09357 Assistance with Respiratory Ventilation, Less than 24 Consecutive Hours, Continuous Positive Airway Pressure (ICD-10-PCS; 2021-06-01)
DX: A41.9 Sepsis, unspecified organism (principal); J96.02 Acute respiratory failure with hypercapnia; J18.9 Pneumonia, unspecified organism; J96.01 Acute respiratory failure with hypoxia; E44.0 Moderate protein-calorie malnutrition; E87.3 Alkalosis; Z68.1 Body mass index [BMI] 19.9 or less, adult; J43.9 Emphysema, unspecified; R91.1 Solitary pulmonary nodule; F41.1 Generalized anxiety disorder; F17.210 Nicotine dependence, cigarettes, uncomplicated; Z20.822 Contact with and (suspected) exposure to COVID-19; R73.9 Hyperglycemia, unspecified; Z71.6 Tobacco abuse counseling; Z79.51 Long term (current) use of inhaled steroids; Z79.899 Other long term (current) drug therapy

== ENCOUNTER 2021-09-20 13:32 | Inpatient (IN) | payer MEDICAID ==
[~2021-09-20] VITALS: Ht 175.2 cm; Wt 51.3 kg
[~2021-09-20 13:32] MED LIST changes: +BUDESONIDE0.5 MG/2 M INH; +BUSPAR5 MG PO; +BUSPIRONE HCL10 MG PO; +LEVOFLOXACIN750 M2 PO; +NORVASC5 MG PO; +PREDNISONE10 M1 PO; +PREDNISONE5 MG PO; +PULMICORT RESP0.5 M1 INH; +VITAMIN D350 MC2 PO
[2021-09-20 13:41] VITALS: BP 165/95
[2021-09-20 13:44] LABS: ABG BASE EXCESS -1.3 mmol/L (-2.0-2.0); ARTERIAL BLOOD GAS PH 7.244 (7.35-7.45); ARTERIAL BLOOD GAS PO2 206.5 (80-90)
[2021-09-20 14:16] LABS: HEMATOCRIT 43.8 % (42.0-52.0); MEAN CELL VOLUME 96.7 fl (80.0-94.0); MEAN CORPUSCULAR HGB CONC 33.1 g/dl (33.0-37.0); MEAN PLATELET VOLUME 11.3 fl (9.6-12.3); PLATELET COUNT AUTOMATED 312 10*3/uL (130-400); RED BLOOD COUNT 4.53 10*6/uL (4.50-5.90); RED CELL DISTRI WIDTH 12.8 % (0-14.5); WHITE BLOOD COUNT 28.9 10*3/uL (4.8-10.8)
[2021-09-20 14:22] LABS: MANUAL DIFF REFLEX YES
[2021-09-20 14:30] LABS: ACT PARTIAL THROMBO TIME 28.7 SECONDS (20.0-32.1); INTERNATIONAL NORM RATIO 1.2 (2.0-3.5)
[2021-09-20 14:42] LABS: POLYCHROMASIA SLIGHT; TOTAL CELLS COUNTED 100 #CELLS
[2021-09-20 14:43] LABS: PLATELET SUFFICIENCY NORMAL (NORMAL); TOXIC GRANULATION SLIGHT
[2021-09-20 14:47] LABS: ALKALINE PHOSPHATASE 112 U/L (45-117); BUN 13 mg/dl (7-24); CHLORIDE 104 mmol/L (98-107); POTASSIUM 4.2 mmol/L (3.5-5.1); SGOT/AST 6 IU/L (3-35); SGPT/ALT 19 U/L (12-78); SODIUM 139 mmol/L (136-145); TOTAL PROTEIN 7.5 gm/dL (6.4-8.2)
[2021-09-20 16:00] VITALS: BP 117/66
[2021-09-20 16:30] VITALS: BP 109/56
[2021-09-20 17:20] VITALS: BP 153/80
[2021-09-20 18:27] LABS: BILIRUBIN Negative (Negative); BLOOD Trace-Lysed (Negative); CLARITY Clear (Clear); COLOR Yellow (Yellow); GLUCOSE Negative (Negative); KETONE Trace (Negative); LEUKO ESTERASE Trace (Negative); NITRITE Negative (Negative); PH 5.5 (4.5-8.0); SPECIFIC GRAVITY >= 1.030 (1.001-1.030)
[2021-09-20 18:39] LABS: HYALINE CAST 21-30; WBC 21-30 wbc/hpf (0-5)
[2021-09-20 20:00] VITALS: BP 141/77
[2021-09-21] VITALS: BP 113/72
[2021-09-21 04:00] VITALS: BP 113/72
[2021-09-21 05:55] LABS: BUN 18 mg/dl (7-24); CHLORIDE 104 mmol/L (98-107); POTASSIUM 4.2 mmol/L (3.5-5.1); SODIUM 138 mmol/L (136-145)
[2021-09-21 06:00] LABS: ALKALINE PHOSPHATASE 95 U/L (45-117); CHOLESTEROL 143 mg/dL (<200); FREE T4 1.31 ng/dl (0.76-1.46); LDL CHOLESTEROL 83 mg/dL (9-159); SGOT/AST 5 IU/L (3-35); SGPT/ALT 13 U/L (12-78); THYROID STIM HORMONE (HS) 0.221 uIU/ml (0.358-4.75); TOTAL PROTEIN 6.6 gm/dL (6.4-8.2); TRIGLYCERIDES 64 mg/dl (<150)
[2021-09-21 06:06] LABS: HEMATOCRIT 38.9 % (42.0-52.0); MEAN CELL VOLUME 96.8 fl (80.0-94.0); MEAN CORPUSCULAR HGB 31.6 pg (27.0-31.0); MEAN CORPUSCULAR HGB CONC 32.6 g/dl (33.0-37.0); MEAN PLATELET VOLUME 11.7 fl (9.6-12.3); PLATELET COUNT AUTOMATED 230 10*3/uL (130-400); RED BLOOD COUNT 4.02 10*6/uL (4.50-5.90); RED CELL DISTRI WIDTH 12.8 % (0-14.5); WHITE BLOOD COUNT 16.6 10*3/uL (4.8-10.8)
[2021-09-21 06:14] LABS: MANUAL DIFF REFLEX YES
[2021-09-21 06:32] LABS: TOTAL CELLS COUNTED 100 #CELLS
[2021-09-21 06:33] LABS: PLATELET SUFFICIENCY NORMAL (NORMAL); TOXIC GRANULATION SLIGHT
[2021-09-21 08:00] VITALS: BP 138/84
[2021-09-21 08:13] LABS: ABG BASE EXCESS 0.4 mmol/L (-2.0-2.0); ARTERIAL BLOOD GAS PH 7.416 (7.35-7.45); ARTERIAL BLOOD GAS PO2 127.8 (80-90)
[2021-09-21 12:00] VITALS: BP 134/75
[2021-09-21 16:00] VITALS: BP 140/74
[2021-09-21 20:00] VITALS: BP 157/74
[2021-09-22] VITALS: BP 138/84; BP 158/90
[2021-09-22 06:25] LABS: BUN 13 mg/dl (7-24); CHLORIDE 109 mmol/L (98-107); CREATININE 0.45 mg/dL (0.70-1.30); POTASSIUM 4.2 mmol/L (3.5-5.1); SODIUM 143 mmol/L (136-145)
[2021-09-22 06:36] LABS: HEMATOCRIT 36.6 % (42.0-52.0); MEAN CELL VOLUME 96.3 fl (80.0-94.0); MEAN CORPUSCULAR HGB 31.3 pg (27.0-31.0); MEAN CORPUSCULAR HGB CONC 32.5 g/dl (33.0-37.0); MEAN PLATELET VOLUME 11.4 fl (9.6-12.3); PLATELET COUNT AUTOMATED 247 10*3/uL (130-400); RED CELL DISTRI WIDTH 12.9 % (0-14.5); WHITE BLOOD COUNT 16.7 10*3/uL (4.8-10.8)
[2021-09-22 06:53] LABS: MANUAL DIFF REFLEX YES
[2021-09-22 07:41] LABS: TOTAL CELLS COUNTED 100 #CELLS
[2021-09-22 07:42] LABS: PLATELET SUFFICIENCY NORMAL (NORMAL); POLYCHROMASIA SLIGHT; TOXIC GRANULATION SLIGHT
[2021-09-22 08:00] VITALS: BP 142/84
[2021-09-22 12:00] VITALS: BP 158/79
[2021-09-22 16:00] VITALS: BP 159/86
[2021-09-22 20:00] VITALS: BP 147/81
[2021-09-23] VITALS: BP 146/80
[2021-09-23 06:21] LABS: HEMATOCRIT 39.5 % (42.0-52.0); MEAN CELL VOLUME 97.1 fl (80.0-94.0); MEAN CORPUSCULAR HGB 31.7 pg (27.0-31.0); MEAN CORPUSCULAR HGB CONC 32.7 g/dl (33.0-37.0); MEAN PLATELET VOLUME 11.2 fl (9.6-12.3); PLATELET COUNT AUTOMATED 262 10*3/uL (130-400); RED BLOOD COUNT 4.07 10*6/uL (4.50-5.90); WHITE BLOOD COUNT 13.2 10*3/uL (4.8-10.8)
[2021-09-23 06:23] LABS: MANUAL DIFF REFLEX YES
[2021-09-23 06:28] LABS: BUN 9 mg/dl (7-24); CHLORIDE 103 mmol/L (98-107); CREATININE 0.41 mg/dL (0.70-1.30); POTASSIUM 3.9 mmol/L (3.5-5.1); SODIUM 140 mmol/L (136-145)
[2021-09-23 07:47] LABS: TOTAL CELLS COUNTED 100 #CELLS
[2021-09-23 08:00] VITALS: BP 161/85
[2021-09-23 08:02] LABS: PLATELET SUFFICIENCY NORMAL (NORMAL)
[2021-09-23 12:00] VITALS: BP 117/85
[2021-09-23 16:00] VITALS: BP 151/75
[2021-09-23 20:00] VITALS: BP 145/92
[2021-09-24] VITALS: BP 136/82; BP 136/91
[2021-09-24 05:32] LABS: BUN 13 mg/dl (7-24); CHLORIDE 101 mmol/L (98-107); POTASSIUM 4.1 mmol/L (3.5-5.1); SODIUM 139 mmol/L (136-145)
[2021-09-24 06:29] LABS: HEMATOCRIT 39.8 % (42.0-52.0); MEAN CELL VOLUME 96.6 fl (80.0-94.0); MEAN CORPUSCULAR HGB 30.8 pg (27.0-31.0); MEAN CORPUSCULAR HGB CONC 31.9 g/dl (33.0-37.0); MEAN PLATELET VOLUME 11.7 fl (9.6-12.3); PLATELET COUNT AUTOMATED 296 10*3/uL (130-400); RED BLOOD COUNT 4.12 10*6/uL (4.50-5.90); RED CELL DISTRI WIDTH 12.9 % (0-14.5); WHITE BLOOD COUNT 12.9 10*3/uL (4.8-10.8)
[2021-09-24 06:38] LABS: MANUAL DIFF REFLEX YES
[2021-09-24 07:56] LABS: ATYPICAL LYMPHS 3 % (0-0); TOTAL CELLS COUNTED 100 #CELLS
[2021-09-24 07:57] LABS: PLATELET SUFFICIENCY NORMAL (NORMAL)
[2021-09-24 08:00] VITALS: BP 149/84
[2021-09-24 12:00] VITALS: BP 147/83
[2021-09-24 16:00] VITALS: BP 147/82
[2021-09-24 20:00] VITALS: BP 152/80
[2021-09-25] VITALS: BP 140/78
[2021-09-25 04:56] LABS: HEMATOCRIT 38.9 % (42.0-52.0); MEAN CELL VOLUME 97.3 fl (80.0-94.0); MEAN CORPUSCULAR HGB 31.5 pg (27.0-31.0); MEAN CORPUSCULAR HGB CONC 32.4 g/dl (33.0-37.0); MEAN PLATELET VOLUME 11.3 fl (9.6-12.3); PLATELET COUNT AUTOMATED 297 10*3/uL (130-400); RED CELL DISTRI WIDTH 12.9 % (0-14.5); WHITE BLOOD COUNT 12.7 10*3/uL (4.8-10.8)
[2021-09-25 06:03] LABS: MANUAL DIFF REFLEX YES
[2021-09-25 06:23] LABS: BUN 12 mg/dl (7-24); CHLORIDE 100 mmol/L (98-107); POTASSIUM 3.7 mmol/L (3.5-5.1); SODIUM 140 mmol/L (136-145)
[2021-09-25 06:41] LABS: PLATELET SUFFICIENCY NORMAL (NORMAL); TOTAL CELLS COUNTED 100 #CELLS
[2021-09-25 08:00] VITALS: BP 157/86
[2021-09-25 12:00] VITALS: BP 143/79
[2021-09-25] MEDS ORDERED: PREDNISONE10 MG PO (14:44)
[2021-09-25] MEDS ORDERED: LEVOFLOXACIN750 M2 PO (14:45)
[2021-09-25] MEDS ORDERED: MUCINEX1200 M1 PO (14:46)
== END 2021-09-25 17:07 | disposition home or self-care (01) | DRG 871 ==
LOC: ED 13:32 → EDHOLD 15:05 → 4E 15:05
PROVIDERS: Emergency Medicine; Internal Medicine; ADMIT Internal Medicine; ATTEND Internal Medicine
PROC: 5A09357 Assistance with Respiratory Ventilation, Less than 24 Consecutive Hours, Continuous Positive Airway Pressure (ICD-10-PCS; principal; 2021-09-20)
PROC: 5A09357 Assistance with Respiratory Ventilation, Less than 24 Consecutive Hours, Continuous Positive Airway Pressure (ICD-10-PCS; 2021-09-21)
PROC: 5A09357 Assistance with Respiratory Ventilation, Less than 24 Consecutive Hours, Continuous Positive Airway Pressure (ICD-10-PCS; 2021-09-22)
PROC: 5A09357 Assistance with Respiratory Ventilation, Less than 24 Consecutive Hours, Continuous Positive Airway Pressure (ICD-10-PCS; 2021-09-24)
PROC: 5A09357 Assistance with Respiratory Ventilation, Less than 24 Consecutive Hours, Continuous Positive Airway Pressure (ICD-10-PCS; 2021-09-25)
DX: A41.9 Sepsis, unspecified organism (principal); J18.9 Pneumonia, unspecified organism; J96.21 Acute and chronic respiratory failure with hypoxia; J96.22 Acute and chronic respiratory failure with hypercapnia; E44.0 Moderate protein-calorie malnutrition; J84.114 Acute interstitial pneumonitis; Z68.1 Body mass index [BMI] 19.9 or less, adult; F17.210 Nicotine dependence, cigarettes, uncomplicated; N40.0 Benign prostatic hyperplasia without lower urinary tract symptoms; I10 Essential (primary) hypertension; J20.9 Acute bronchitis, unspecified; J43.9 Emphysema, unspecified; E83.39 Other disorders of phosphorus metabolism; Z71.6 Tobacco abuse counseling; Z79.899 Other long term (current) drug therapy

== ENCOUNTER 2022-03-21 10:28 | Inpatient (IN) | payer MEDICAID ==
[~2022-03-21] VITALS: Ht 177.8 cm; Wt 50.4 kg
[~2022-03-21 10:28] MED LIST changes: +MUCINEX1200 M1 PO
[2022-03-21 10:36] VITALS: BP 126/91
[2022-03-21 11:15] LABS: BASO # 0.1 10*3/uL (0.0-0.1); BASO % 0.3 % (0.0-1.0); EOS % 0.1 % (1.0-4.0); HEMATOCRIT 45.2 % (42.0-52.0); LYMPH % 6.7 % (27.0-41.0); MEAN CELL VOLUME 96.8 fl (80.0-94.0); MEAN CORPUSCULAR HGB 31.5 pg (27.0-31.0); MEAN CORPUSCULAR HGB CONC 32.5 g/dl (33.0-37.0); MEAN PLATELET VOLUME 10.9 fl (9.6-12.3); MONO # 1.3 10*3/uL (0.1-1.0); MONO % 8.8 % (3.0-9.0); NEUT # 12.8 10*3/uL (2.3-7.9); NEUT % 83.6 % (47.0-73.0); PLATELET COUNT AUTOMATED 352 10*3/uL (130-400); RED BLOOD COUNT 4.67 10*6/uL (4.50-5.90); RED CELL DISTRI WIDTH 12.1 % (0-14.5); WHITE BLOOD COUNT 15.3 10*3/uL (4.8-10.8)
[2022-03-21 11:36] LABS: ALKALINE PHOSPHATASE 106 U/L (45-117); BUN 16 mg/dl (7-24); CHLORIDE 100 mmol/L (98-107); CREATININE 0.51 mg/dL (0.70-1.30); POTASSIUM 4.2 mmol/L (3.5-5.1); SGPT/ALT 19 U/L (12-78); SODIUM 141 mmol/L (136-145); TOTAL PROTEIN 7.4 gm/dL (6.4-8.2)
[2022-03-21 12:56] VITALS: BP 132/77
[2022-03-21 13:32] LABS: ABG BASE EXCESS 8.7 mmol/L (-2.0-2.0); ARTERIAL BLOOD GAS PH 7.418 (7.35-7.45)
[2022-03-21 16:05] VITALS: BP 107/79
[2022-03-21 17:35] VITALS: BP 114/84
[2022-03-21 18:00] VITALS: BP 154/93
[2022-03-21] MEDS ORDERED: AVPAK AZITHROM250 M1 PO (19:23)
[2022-03-21] MEDS ORDERED: SUNMARK MUCUS600 MG PO (19:26)
[2022-03-21] MEDS ORDERED: BUDESONIDE-FO10.2 G1 INH (19:31)
[2022-03-21 20:00] VITALS: BP 139/88
[2022-03-22] VITALS: BP 142/77
[2022-03-22 05:48] LABS: BUN 13 mg/dl (7-24); CHLORIDE 98 mmol/L (98-107); CREATININE 0.51 mg/dL (0.70-1.30); POTASSIUM 3.8 mmol/L (3.5-5.1); SODIUM 138 mmol/L (136-145)
[2022-03-22 06:19] LABS: HEMATOCRIT 41.3 % (42.0-52.0); MEAN CELL VOLUME 98.8 fl (80.0-94.0); MEAN CORPUSCULAR HGB 32.5 pg (27.0-31.0); MEAN CORPUSCULAR HGB CONC 32.9 g/dl (33.0-37.0); MEAN PLATELET VOLUME 11.7 fl (9.6-12.3); PLATELET COUNT AUTOMATED 313 10*3/uL (130-400); RED BLOOD COUNT 4.18 10*6/uL (4.50-5.90); RED CELL DISTRI WIDTH 12.3 % (0-14.5); WHITE BLOOD COUNT 13.2 10*3/uL (4.8-10.8)
[2022-03-22 06:28] LABS: MANUAL DIFF REFLEX YES
[2022-03-22 07:18] LABS: ATYPICAL LYMPHS 2 % (0-0); PLATELET SUFFICIENCY NORMAL (NORMAL); TOTAL CELLS COUNTED 100 #CELLS
[2022-03-22 08:00] VITALS: BP 144/84
[2022-03-22 12:00] VITALS: BP 164/90
[2022-03-22 16:00] VITALS: BP 153/75
[2022-03-22 20:00] VITALS: BP 148/89
[2022-03-23] VITALS: BP 147/79
[2022-03-23 08:00] VITALS: BP 147/82
[2022-03-23 12:00] VITALS: BP 141/83
[2022-03-23 16:00] VITALS: BP 156/74
[2022-03-23 20:00] VITALS: BP 144/73
[2022-03-24] VITALS: BP 141/83
[2022-03-24 06:25] LABS: BUN 8 mg/dl (7-24); CHLORIDE 99 mmol/L (98-107); CREATININE 0.42 mg/dL (0.70-1.30); SODIUM 141 mmol/L (136-145)
[2022-03-24 06:26] LABS: BASO # 0.1 10*3/uL (0.0-0.1); BASO % 0.5 % (0.0-1.0); EOS # 0.2 10*3/uL (0.0-0.4); EOS % 1.8 % (1.0-4.0); HEMATOCRIT 42.3 % (42.0-52.0); LYMPH # 1.6 10*3/uL (1.3-4.4); LYMPH % 13.1 % (27.0-41.0); MEAN CELL VOLUME 98.1 fl (80.0-94.0); MEAN CORPUSCULAR HGB 30.9 pg (27.0-31.0); MEAN CORPUSCULAR HGB CONC 31.4 g/dl (33.0-37.0); MONO % 8.1 % (3.0-9.0); NEUT # 9.2 10*3/uL (2.3-7.9); NEUT % 75.7 % (47.0-73.0); PLATELET COUNT AUTOMATED 338 10*3/uL (130-400); RED BLOOD COUNT 4.31 10*6/uL (4.50-5.90); RED CELL DISTRI WIDTH 12.2 % (0-14.5); WHITE BLOOD COUNT 12.1 10*3/uL (4.8-10.8)
[2022-03-24 08:00] VITALS: BP 122/74
[2022-03-24 12:00] VITALS: BP 139/84
[2022-03-24 16:00] VITALS: BP 125/77
[2022-03-24 20:00] VITALS: BP 141/79
[2022-03-25] VITALS: BP 126/67
[2022-03-25 05:27] LABS: BUN 11 mg/dl (7-24); CHLORIDE 98 mmol/L (98-107); CREATININE 0.47 mg/dL (0.70-1.30); POTASSIUM 4.2 mmol/L (3.5-5.1); SODIUM 136 mmol/L (136-145)
[2022-03-25 06:27] LABS: MEAN CELL VOLUME 95.8 fl (80.0-94.0); MEAN CORPUSCULAR HGB 31.4 pg (27.0-31.0); MEAN CORPUSCULAR HGB CONC 32.8 g/dl (33.0-37.0); MEAN PLATELET VOLUME 10.9 fl (9.6-12.3); PLATELET COUNT AUTOMATED 335 10*3/uL (130-400); RED BLOOD COUNT 4.07 10*6/uL (4.50-5.90); RED CELL DISTRI WIDTH 12.2 % (0-14.5); WHITE BLOOD COUNT 10.5 10*3/uL (4.8-10.8)
[2022-03-25 06:35] LABS: MANUAL DIFF REFLEX YES
[2022-03-25 07:08] LABS: POLYCHROMASIA SLIGHT; TOTAL CELLS COUNTED 100 #CELLS; TOXIC GRANULATION SLIGHT
[2022-03-25 07:09] LABS: BURR CELLS FEW; PLATELET SUFFICIENCY NORMAL (NORMAL); TARGET CELLS FEW
[2022-03-25 08:00] VITALS: BP 145/74
[2022-03-25 12:00] VITALS: BP 138/84
[2022-03-25 16:00] VITALS: BP 131/75
[2022-03-25 20:00] VITALS: BP 143/73
[2022-03-26] VITALS: BP 136/76
[2022-03-26 00:31] LABS: BUN 14 mg/dl (7-24); CHLORIDE 100 mmol/L (98-107); CREATININE 0.56 mg/dL (0.70-1.30); POTASSIUM 3.9 mmol/L (3.5-5.1); SODIUM 139 mmol/L (136-145)
[2022-03-26 06:10] LABS: BUN 14 mg/dl (7-24); CHLORIDE 100 mmol/L (98-107); SODIUM 137 mmol/L (136-145)
[2022-03-26 06:13] LABS: BASO % 0.1 % (0.0-1.0); LYMPH # 0.7 10*3/uL (1.3-4.4); LYMPH % 5.3 % (27.0-41.0); MEAN CELL VOLUME 95.8 fl (80.0-94.0); MEAN CORPUSCULAR HGB 31.4 pg (27.0-31.0); MEAN CORPUSCULAR HGB CONC 32.8 g/dl (33.0-37.0); MEAN PLATELET VOLUME 11.2 fl (9.6-12.3); MONO # 0.6 10*3/uL (0.1-1.0); MONO % 4.1 % (3.0-9.0); NEUT # 12.5 10*3/uL (2.3-7.9); NEUT % 89.9 % (47.0-73.0); PLATELET COUNT AUTOMATED 363 10*3/uL (130-400); RED BLOOD COUNT 4.07 10*6/uL (4.50-5.90); RED CELL DISTRI WIDTH 12.5 % (0-14.5); WHITE BLOOD COUNT 13.9 10*3/uL (4.8-10.8)
[2022-03-26 08:00] VITALS: BP 137/82
[2022-03-26 12:00] VITALS: BP 138/84
[2022-03-26 16:00] VITALS: BP 124/85
[2022-03-26 20:00] VITALS: BP 141/76
[2022-03-27] VITALS: BP 121/59
[2022-03-27 06:22] LABS: BASO % 0.1 % (0.0-1.0); BUN 16 mg/dl (7-24); CHLORIDE 103 mmol/L (98-107); CREATININE 0.51 mg/dL (0.70-1.30); LYMPH # 0.9 10*3/uL (1.3-4.4); LYMPH % 6.8 % (27.0-41.0); MEAN CELL VOLUME 96.7 fl (80.0-94.0); MEAN CORPUSCULAR HGB 31.6 pg (27.0-31.0); MEAN CORPUSCULAR HGB CONC 32.6 g/dl (33.0-37.0); MEAN PLATELET VOLUME 11.1 fl (9.6-12.3); MONO # 0.6 10*3/uL (0.1-1.0); MONO % 4.4 % (3.0-9.0); NEUT # 11.2 10*3/uL (2.3-7.9); PLATELET COUNT AUTOMATED 362 10*3/uL (130-400); RED BLOOD COUNT 3.93 10*6/uL (4.50-5.90); RED CELL DISTRI WIDTH 12.8 % (0-14.5); SODIUM 139 mmol/L (136-145); WHITE BLOOD COUNT 12.7 10*3/uL (4.8-10.8)
[2022-03-27 08:00] VITALS: BP 151/84
[2022-03-27 12:00] VITALS: BP 122/94
[2022-03-27 16:00] VITALS: BP 140/66
[2022-03-27 20:00] VITALS: BP 165/78
[2022-03-28] VITALS: BP 144/75
[2022-03-28 07:11] LABS: BASO % 0.2 % (0.0-1.0); HEMATOCRIT 38.4 % (42.0-52.0); LYMPH # 0.6 10*3/uL (1.3-4.4); LYMPH % 5.8 % (27.0-41.0); MEAN CORPUSCULAR HGB 31.4 pg (27.0-31.0); MEAN CORPUSCULAR HGB CONC 33.1 g/dl (33.0-37.0); MEAN PLATELET VOLUME 10.9 fl (9.6-12.3); MONO # 0.4 10*3/uL (0.1-1.0); MONO % 3.9 % (3.0-9.0); NEUT # 9.6 10*3/uL (2.3-7.9); NEUT % 89.1 % (47.0-73.0); PLATELET COUNT AUTOMATED 364 10*3/uL (130-400); RED BLOOD COUNT 4.04 10*6/uL (4.50-5.90); RED CELL DISTRI WIDTH 12.9 % (0-14.5); WHITE BLOOD COUNT 10.7 10*3/uL (4.8-10.8)
[2022-03-28 07:23] LABS: BUN 13 mg/dl (7-24); CHLORIDE 104 mmol/L (98-107); CREATININE 0.52 mg/dL (0.70-1.30); POTASSIUM 4.3 mmol/L (3.5-5.1); SODIUM 140 mmol/L (136-145)
[2022-03-28 08:00] VITALS: BP 145/80
[2022-03-28 12:00] VITALS: BP 130/66
[2022-03-28 16:00] VITALS: BP 127/74
[2022-03-28 20:00] VITALS: BP 149/68
[2022-03-29] VITALS: BP 141/61
[2022-03-29 08:00] VITALS: BP 128/73
[2022-03-29 12:00] VITALS: BP 137/84
[2022-03-29 16:00] VITALS: BP 136/80
[2022-03-29 20:00] VITALS: BP 153/76
[2022-03-30] VITALS: BP 139/69
[2022-03-30 04:46] VITALS: BP 139/66
[2022-03-30 08:00] VITALS: BP 144/78
[2022-03-30 12:00] VITALS: BP 158/80
[2022-03-30 16:00] VITALS: BP 158/76
[2022-03-30 20:00] VITALS: BP 156/77
[2022-03-31] VITALS: BP 129/61
[2022-03-31 06:19] LABS: BUN 14 mg/dl (7-24); CHLORIDE 101 mmol/L (98-107); CREATININE 0.49 mg/dL (0.70-1.30); POTASSIUM 3.7 mmol/L (3.5-5.1); SODIUM 136 mmol/L (136-145)
[2022-03-31 06:21] LABS: HEMATOCRIT 37.6 % (42.0-52.0); MEAN CELL VOLUME 95.9 fl (80.0-94.0); MEAN CORPUSCULAR HGB 31.4 pg (27.0-31.0); MEAN CORPUSCULAR HGB CONC 32.7 g/dl (33.0-37.0); MEAN PLATELET VOLUME 10.8 fl (9.6-12.3); PLATELET COUNT AUTOMATED 370 10*3/uL (130-400); RED BLOOD COUNT 3.92 10*6/uL (4.50-5.90); RED CELL DISTRI WIDTH 13.7 % (0-14.5); WHITE BLOOD COUNT 16.9 10*3/uL (4.8-10.8)
[2022-03-31 06:29] LABS: MANUAL DIFF REFLEX YES
[2022-03-31 07:11] LABS: OVALOCYTES FEW; PLATELET SUFFICIENCY NORMAL (NORMAL); POLYCHROMASIA SLIGHT; TOTAL CELLS COUNTED 100 #CELLS; TOXIC GRANULATION SLIGHT
[2022-03-31 08:00] VITALS: BP 161/83
[2022-03-31 11:19] VITALS: BP 140/73
[2022-03-31 16:00] VITALS: BP 153/77
[2022-03-31 20:00] VITALS: BP 151/74
[2022-04-01] VITALS: BP 141/63
[2022-04-01 04:39] LABS: CHLORIDE 100 mmol/L (98-107); POTASSIUM 4.4 mmol/L (3.4-5.1); SODIUM 138 mmol/L (136-145)
[2022-04-01 04:48] LABS: CREATININE 0.43 mg/dL (0.70-1.30)
[2022-04-01 04:49] LABS: ALKALINE PHOSPHATASE 76 U/L (46-116); BUN 10 mg/dl (9-23)
[2022-04-01 04:50] LABS: SGPT/ALT 104 U/L (10-49)
[2022-04-01 04:51] LABS: TOTAL PROTEIN 5.3 gm/dL (6.0-8.0)
[2022-04-01 06:22] LABS: HEMATOCRIT 37.4 % (42.0-52.0); MEAN CELL VOLUME 96.4 fl (80.0-94.0); MEAN CORPUSCULAR HGB 31.7 pg (27.0-31.0); MEAN CORPUSCULAR HGB CONC 32.9 g/dl (33.0-37.0); PLATELET COUNT AUTOMATED 394 10*3/uL (130-400); RED BLOOD COUNT 3.88 10*6/uL (4.50-5.90); RED CELL DISTRI WIDTH 14.1 % (0-14.5); WHITE BLOOD COUNT 18.4 10*3/uL (4.8-10.8)
[2022-04-01 06:38] LABS: MANUAL DIFF REFLEX YES
[2022-04-01 07:18] LABS: PLATELET SUFFICIENCY NORMAL (NORMAL); TOTAL CELLS COUNTED 100 #CELLS
[2022-04-01 08:00] VITALS: BP 110/78
[2022-04-01 12:00] VITALS: BP 128/78
[2022-04-01 16:00] VITALS: BP 154/64
[2022-04-01 20:00] VITALS: BP 157/71
[2022-04-02] VITALS: BP 144/64
[2022-04-02 07:25] LABS: HEMATOCRIT 38.8 % (42.0-52.0); MEAN CELL VOLUME 95.6 fl (80.0-94.0); MEAN CORPUSCULAR HGB 31.5 pg (27.0-31.0); MEAN PLATELET VOLUME 10.6 fl (9.6-12.3); PLATELET COUNT AUTOMATED 382 10*3/uL (130-400); RED BLOOD COUNT 4.06 10*6/uL (4.50-5.90); RED CELL DISTRI WIDTH 14.3 % (0-14.5); WHITE BLOOD COUNT 17.1 10*3/uL (4.8-10.8)
[2022-04-02 07:42] LABS: CHLORIDE 99 mmol/L (98-107); SODIUM 138 mmol/L (136-145)
[2022-04-02 07:45] LABS: MANUAL DIFF REFLEX YES
[2022-04-02 07:48] LABS: BUN 13 mg/dl (9-23); CREATININE 0.39 mg/dL (0.70-1.30)
[2022-04-02 08:01] VITALS: BP 138/78
[2022-04-02 08:03] LABS: PLATELET SUFFICIENCY NORMAL (NORMAL); POLYCHROMASIA SLIGHT; TARGET CELLS FEW; TOTAL CELLS COUNTED 100 #CELLS
[2022-04-02 12:00] VITALS: BP 140/84
[2022-04-02] MEDS ORDERED: DOXYCYCLINE MO100 MG PO (12:19)
[2022-04-02] MEDS ORDERED: PREDNISONE10 MG PO (12:19)
[2022-04-02] MEDS ORDERED: ATARAX,VISTARIL50 MG PO (12:20)
[2022-04-02] MEDS ORDERED: BENZONATATE100 M1 PO (12:20)
[2022-04-02] MEDS ORDERED: MUCINEX ER600 MG PO (12:20)
== END 2022-04-02 14:03 | disposition home or self-care (01) | DRG 871 ==
LOC: ED 10:28 → EDHOLD 12:01 → 4E 12:01
PROVIDERS: Family Medicine; Internal Medicine; Nurse Practitioner Family; Registered Nurse; Student in an Organized Health Care Education/Training Program; ADMIT Internal Medicine; ATTEND Internal Medicine
PROC: 5A09357 Assistance with Respiratory Ventilation, Less than 24 Consecutive Hours, Continuous Positive Airway Pressure (ICD-10-PCS; principal; 2022-03-21)
PROC: 5A09357 Assistance with Respiratory Ventilation, Less than 24 Consecutive Hours, Continuous Positive Airway Pressure (ICD-10-PCS; 2022-03-24)
PROC: 5A09357 Assistance with Respiratory Ventilation, Less than 24 Consecutive Hours, Continuous Positive Airway Pressure (ICD-10-PCS; 2022-03-26)
PROC: 5A0945A Assistance with Respiratory Ventilation, 24-96 Consecutive Hours, High Flow/Velocity Cannula (ICD-10-PCS; 2022-03-30)
PROC: 5A09357 Assistance with Respiratory Ventilation, Less than 24 Consecutive Hours, Continuous Positive Airway Pressure (ICD-10-PCS; 2022-04-02)
DX: A41.9 Sepsis, unspecified organism (principal); E43 Unspecified severe protein-calorie malnutrition; J15.6 Pneumonia due to other Gram-negative bacteria; J96.21 Acute and chronic respiratory failure with hypoxia; J96.22 Acute and chronic respiratory failure with hypercapnia; J44.0 Chronic obstructive pulmonary disease with (acute) lower respiratory infection; J44.1 Chronic obstructive pulmonary disease with (acute) exacerbation; Z68.1 Body mass index [BMI] 19.9 or less, adult; R65.20 Severe sepsis without septic shock; Z20.822 Contact with and (suspected) exposure to COVID-19; I10 Essential (primary) hypertension; E55.9 Vitamin D deficiency, unspecified; F12.90 Cannabis use, unspecified, uncomplicated; N40.0 Benign prostatic hyperplasia without lower urinary tract symptoms; R73.9 Hyperglycemia, unspecified; Z66 Do not resuscitate; Z80.3 Family history of malignant neoplasm of breast; Z99.81 Dependence on supplemental oxygen

== ENCOUNTER 2022-10-09 15:13 | Emergency (ER) | payer MEDICAID ==
[~2022-10-09] VITALS: Wt 52.2 kg
[~2022-10-09 15:13] MED LIST changes: +ATARAX,VISTARIL50 MG PO; +AVPAK AZITHROM250 M1 PO; +BENZONATATE100 M1 PO; +BENZONATATE200 MG PO; +BUDESONIDE-FO10.2 G1 INH; +BUDESONIDE0.5 MG/2 M NEB; +BUSPIRONE10 MG PO; +DOXYCYCLINE HY100 M3 PO; +DOXYCYCLINE MO100 MG PO; +SPIRIVA -- 3018 MCG INH; +SUNMARK MUCUS600 MG PO; +VITAMIN D350 MCG PO
[2022-10-09 15:25] VITALS: BP 156/101
[2022-10-09 17:17] LABS: BILIRUBIN Negative (Negative); BLOOD 2+ (Negative); CLARITY Clear (Clear); COLOR Yellow (Yellow); GLUCOSE Negative (Negative); KETONE Trace (Negative); LEUKO ESTERASE Trace (Negative); NITRITE Negative (Negative); PH 5.5 (4.5-8.0)
[2022-10-09 17:44] LABS: BASO # 0.1 10*3/uL (0.0-0.1); BASO % 0.5 % (0.0-1.0); EOS # 0.2 10*3/uL (0.0-0.4); EOS % 1.1 % (1.0-4.0); HEMATOCRIT 42.8 % (42.0-52.0); LYMPH # 1.6 10*3/uL (1.3-4.4); LYMPH % 10.5 % (27.0-41.0); MEAN CELL VOLUME 94.5 fl (80.0-94.0); MEAN CORPUSCULAR HGB 31.1 pg (27.0-31.0); MEAN CORPUSCULAR HGB CONC 32.9 g/dl (33.0-37.0); MEAN PLATELET VOLUME 11.1 fl (9.6-12.3); MONO # 1.5 10*3/uL (0.1-1.0); MONO % 9.7 % (3.0-9.0); NEUT % 77.7 % (47.0-73.0); PLATELET COUNT AUTOMATED 300 10*3/uL (130-400); RED BLOOD COUNT 4.53 10*6/uL (4.50-5.90); RED CELL DISTRI WIDTH 13.9 % (0-14.5); WHITE BLOOD COUNT 15.5 10*3/uL (4.8-10.8)
[2022-10-09 17:45] LABS: BACTERIA 1+; MUCOUS 2+; RBC 16-20 rbc/hpf (0-2)
[2022-10-09 18:07] LABS: ALKALINE PHOSPHATASE 94 U/L (46-116); BUN 9 mg/dl (9-23); CHLORIDE 106 mmol/L (98-107); LIPASE 29 U/L (12-53); POTASSIUM 3.4 mmol/L (3.4-5.1); TOTAL PROTEIN 6.5 gm/dL (6.0-8.0)
[2022-10-09 18:23] LABS: SGPT/ALT < 7 U/L (10-49)
[2022-10-09] MEDS ORDERED: FLOMAX0.4 MG PO (20:12)
[2022-10-09] MEDS ORDERED: ONDANSETRON4 MG SL (20:12)
[2022-10-09] MEDS ORDERED: CIPRO500 MG PO (20:12)
[2022-10-09] MEDS ORDERED: PERCOCET 5-3251 EACH PO (20:12)
== END 2022-10-09 20:16 | disposition home or self-care (01) ==
LOC: ED 15:13
PROVIDERS: Emergency Medicine
DX: N20.1 Calculus of ureter (principal); N39.0 Urinary tract infection, site not specified; R11.0 Nausea; K59.00 Constipation, unspecified; J44.9 Chronic obstructive pulmonary disease, unspecified; I10 Essential (primary) hypertension; Z98.890 Other specified postprocedural states; Z98.49 Cataract extraction status, unspecified eye; F17.200 Nicotine dependence, unspecified, uncomplicated; F12.90 Cannabis use, unspecified, uncomplicated

== ENCOUNTER 2023-04-06 06:49 | Inpatient (IN) | payer SELFPAY ==
[2023-04-06] VITALS (8 sets, daily range): BP systolic 103–170; BP diastolic 65–80
[~2023-04-06] VITALS: Ht 175.2 cm; Wt 54.1 kg
[~2023-04-06 06:49] MED LIST changes: +CIPRO500 MG PO; +FLOMAX0.4 MG PO; +ONDANSETRON4 MG SL; +PERCOCET 5-3251 EACH PO
[2023-04-06 07:18] LABS: HEMATOCRIT 39.3 % (42.0-52.0); MEAN CELL VOLUME 95.6 fl (80.0-94.0); MEAN CORPUSCULAR HGB 31.6 pg (27.0-31.0); MEAN CORPUSCULAR HGB CONC 33.1 g/dl (33.0-37.0); MEAN PLATELET VOLUME 10.7 fl (9.6-12.3); PLATELET COUNT AUTOMATED 253 10*3/uL (130-400); RED BLOOD COUNT 4.11 10*6/uL (4.50-5.90); RED CELL DISTRI WIDTH 12.3 % (0-14.5); WHITE BLOOD COUNT 24.7 10*3/uL (4.8-10.8)
[2023-04-06 07:23] LABS: MANUAL DIFF REFLEX YES
[2023-04-06 07:32] LABS: ACT PARTIAL THROMBO TIME 32.6 SECONDS (20.0-32.1)
[2023-04-06 07:46] LABS: BASOPHILS 1 % (0-1); BURR CELLS FEW; OVALOCYTES FEW; PLATELET SUFFICIENCY NORMAL (NORMAL); POLYCHROMASIA SLIGHT; TOTAL CELLS COUNTED 100 #CELLS; TOXIC GRANULATION SLIGHT; VACUOLATION OF NEUTROPHILS SLIGHT
[2023-04-06 07:51] LABS: ALKALINE PHOSPHATASE 100 U/L (46-116); BUN 8 mg/dl (9-23); CHLORIDE 103 mmol/L (98-107); LIPASE 27 U/L (12-53); POTASSIUM 3.7 mmol/L (3.4-5.1); TOTAL PROTEIN 6.7 gm/dL (6.0-8.0)
[2023-04-06 07:52] LABS: ETHYL ALCOHOL < 3.0 mg/dl (<3); SGPT/ALT < 7 U/L (5-49)
[2023-04-06 11:27] LABS: ABG BASE EXCESS -1.8 mmol/L (-2.0-2.0); ARTERIAL BLOOD GAS PH 7.396 (7.35-7.45)
[2023-04-06 15:42] LABS: BILIRUBIN Negative (Negative); BLOOD Negative (Negative); CLARITY Clear (Clear); COLOR Yellow (Yellow); GLUCOSE 2+ (Negative); KETONE 1+ (Negative); LEUKO ESTERASE Negative (Negative); NITRITE Negative (Negative); SPECIFIC GRAVITY 1.015 (1.001-1.030)
[2023-04-06 15:50] LABS: BACTERIA TRACE; HYALINE CAST 0-2; MUCOUS 1+
[2023-04-06 15:53] LABS: URINE AMPHETAMINES Negative (1000ng/ml); URINE BARBITURATES Negative (200ng/ml); URINE BENZODIAZEPINES Negative (200ng/ml); URINE CANNABINOIDS (THC) Negative (50ng/ml); URINE COCAINE Negative (300ng/ml); URINE METHADONE Negative (300ng/ml); URINE OPIATES Negative (300ng/ml); URINE PHENCYCLIDINE Negative (25ng/ml)
[2023-04-07] VITALS: BP 108/72
[2023-04-07 07:59] LABS: BASO % 0.1 % (0.0-1.0); HEMATOCRIT 33.5 % (42.0-52.0); LYMPH # 0.7 10*3/uL (1.3-4.4); MEAN CELL VOLUME 92.8 fl (80.0-94.0); MEAN CORPUSCULAR HGB 32.1 pg (27.0-31.0); MEAN CORPUSCULAR HGB CONC 34.6 g/dl (33.0-37.0); MEAN PLATELET VOLUME 11.1 fl (9.6-12.3); MONO % 5.8 % (3.0-9.0); NEUT # 14.6 10*3/uL (2.3-7.9); NEUT % 89.5 % (47.0-73.0); PLATELET COUNT AUTOMATED 214 10*3/uL (130-400); RED BLOOD COUNT 3.61 10*6/uL (4.50-5.90); RED CELL DISTRI WIDTH 12.4 % (0-14.5); WHITE BLOOD COUNT 16.3 10*3/uL (4.8-10.8)
[2023-04-07 08:00] VITALS: BP 130/68
[2023-04-07 08:17] LABS: BUN 11 mg/dl (9-23); CHLORIDE 109 mmol/L (98-107); POTASSIUM 3.8 mmol/L (3.4-5.1)
[2023-04-07 12:00] VITALS: BP 136/73
[2023-04-07 16:00] VITALS: BP 135/77
[2023-04-07 20:00] VITALS: BP 135/68
[2023-04-08] VITALS: BP 134/71
[2023-04-08 06:06] LABS: HEMATOCRIT 32.3 % (42.0-52.0); MEAN CELL VOLUME 95.6 fl (80.0-94.0); MEAN CORPUSCULAR HGB 31.4 pg (27.0-31.0); MEAN CORPUSCULAR HGB CONC 32.8 g/dl (33.0-37.0); MEAN PLATELET VOLUME 11.6 fl (9.6-12.3); PLATELET COUNT AUTOMATED 243 10*3/uL (130-400); RED BLOOD COUNT 3.38 10*6/uL (4.50-5.90); RED CELL DISTRI WIDTH 12.7 % (0-14.5)
[2023-04-08 06:17] LABS: MANUAL DIFF REFLEX YES
[2023-04-08 07:05] LABS: PLATELET SUFFICIENCY NORMAL (NORMAL); TOTAL CELLS COUNTED 100 #CELLS
[2023-04-08 08:00] VITALS: BP 132/70
[2023-04-08 12:00] VITALS: BP 146/45
[2023-04-08 16:00] VITALS: BP 139/61
[2023-04-08 20:00] VITALS: BP 140/74
[2023-04-09] VITALS: BP 155/89
[2023-04-09 08:00] VITALS: BP 149/68
[2023-04-09 12:00] VITALS: BP 144/77
[2023-04-09 16:00] VITALS: BP 144/93
[2023-04-09 20:00] VITALS: BP 121/70
[2023-04-10] VITALS: BP 151/78
[2023-04-10 08:00] VITALS: BP 153/83
[2023-04-10 12:00] VITALS: BP 152/70
[2023-04-10 16:00] VITALS: BP 140/75
[2023-04-10 20:00] VITALS: BP 141/76
[2023-04-11] VITALS: BP 132/67
[2023-04-11 06:01] LABS: ALKALINE PHOSPHATASE 82 U/L (46-116); BUN 13 mg/dl (9-23); CHLORIDE 105 mmol/L (98-107); POTASSIUM 4.1 mmol/L (3.4-5.1); SGPT/ALT 69 U/L (5-49); TOTAL PROTEIN 5.3 gm/dL (6.0-8.0)
[2023-04-11 06:19] LABS: HEMATOCRIT 36.5 % (42.0-52.0); MEAN CELL VOLUME 95.8 fl (80.0-94.0); MEAN CORPUSCULAR HGB CONC 32.3 g/dl (33.0-37.0); MEAN PLATELET VOLUME 11.6 fl (9.6-12.3); PLATELET COUNT AUTOMATED 348 10*3/uL (130-400); RED BLOOD COUNT 3.81 10*6/uL (4.50-5.90); WHITE BLOOD COUNT 21.3 10*3/uL (4.8-10.8)
[2023-04-11 06:32] LABS: MANUAL DIFF REFLEX YES
[2023-04-11 06:52] LABS: ATYPICAL LYMPHS 1 % (0-0); POLYCHROMASIA SLIGHT; TOTAL CELLS COUNTED 100 #CELLS
[2023-04-11 06:53] LABS: OVALOCYTES FEW; PLATELET SUFFICIENCY NORMAL (NORMAL); SCHISTOCYTES FEW
[2023-04-11 08:00] VITALS: BP 128/51
[2023-04-11 12:00] VITALS: BP 146/68
[2023-04-11 16:00] VITALS: BP 126/74
[2023-04-11 20:00] VITALS: BP 138/74
[2023-04-12] VITALS: BP 132/56
[2023-04-12 06:38] LABS: HEMATOCRIT 36.7 % (42.0-52.0); MEAN CELL VOLUME 96.3 fl (80.0-94.0); MEAN CORPUSCULAR HGB 31.2 pg (27.0-31.0); MEAN CORPUSCULAR HGB CONC 32.4 g/dl (33.0-37.0); MEAN PLATELET VOLUME 11.4 fl (9.6-12.3); PLATELET COUNT AUTOMATED 366 10*3/uL (130-400); RED BLOOD COUNT 3.81 10*6/uL (4.50-5.90); RED CELL DISTRI WIDTH 13.2 % (0-14.5); WHITE BLOOD COUNT 21.8 10*3/uL (4.8-10.8)
[2023-04-12 06:39] LABS: MANUAL DIFF REFLEX YES
[2023-04-12 06:58] LABS: BUN 14 mg/dl (9-23); CHLORIDE 103 mmol/L (98-107); POTASSIUM 4.2 mmol/L (3.4-5.1)
[2023-04-12 07:33] LABS: TOTAL CELLS COUNTED 100 #CELLS
[2023-04-12 07:34] LABS: PLATELET SUFFICIENCY NORMAL (NORMAL); POLYCHROMASIA SLIGHT; TOXIC GRANULATION SLIGHT
[2023-04-12 08:00] VITALS: BP 136/62
[2023-04-12] MEDS ORDERED: OMNICEF300 MG PO (10:38)
[2023-04-12] MEDS ORDERED: METOPROLOL SUCC50 M1 PO (10:38)
[2023-04-12] MEDS ORDERED: IMDUR SA30 MG PO (10:38)
[2023-04-12] MEDS ORDERED: VITAMIN D3125 MCG PO (10:38)
[2023-04-12] MEDS ORDERED: Ipratropium Brom3 ML INH (10:38)
[2023-04-12] MEDS ORDERED: SYMB80 INH (10:38)
[2023-04-12] MEDS ORDERED: ATORVASTATIN CA40 M1 PO (10:38)
[2023-04-12] MEDS ORDERED: SPIRIVA -- 3018 MCG INH (10:38)
[2023-04-12] MEDS ORDERED: ASPIRIN ADULT L81 M2 PO (10:38)
[2023-04-12] MEDS ORDERED: PROVENTIL HFA6.7 GM INH (10:38)
[2023-04-12] MEDS ORDERED: PREDNISONE10 MG PO (10:38)
[2023-04-12 11:24] VITALS: BP 108/60
== END 2023-04-12 12:17 | disposition home or self-care (01) | DRG 871 ==
LOC: ED 06:49 → EDHOLD 08:13 → 4E 08:13
PROVIDERS: Internal Medicine; Registered Nurse; ADMIT Internal Medicine; ATTEND Internal Medicine
PROC: 5A09357 Assistance with Respiratory Ventilation, Less than 24 Consecutive Hours, Continuous Positive Airway Pressure (ICD-10-PCS; principal; 2023-04-06)
PROC: 5A09357 Assistance with Respiratory Ventilation, Less than 24 Consecutive Hours, Continuous Positive Airway Pressure (ICD-10-PCS; 2023-04-08)
PROC: 4A12XM4 Monitoring of Cardiac Stress, External Approach (ICD-10-PCS; 2023-04-08)
PROC: 3E073KZ Introduction of Other Diagnostic Substance into Coronary Artery, Percutaneous Approach (ICD-10-PCS; 2023-04-08)
PROC: 5A09357 Assistance with Respiratory Ventilation, Less than 24 Consecutive Hours, Continuous Positive Airway Pressure (ICD-10-PCS; 2023-04-09)
PROC: 5A09357 Assistance with Respiratory Ventilation, Less than 24 Consecutive Hours, Continuous Positive Airway Pressure (ICD-10-PCS; 2023-04-10)
PROC: 5A09357 Assistance with Respiratory Ventilation, Less than 24 Consecutive Hours, Continuous Positive Airway Pressure (ICD-10-PCS; 2023-04-12)
DX: A41.9 Sepsis, unspecified organism (principal); E43 Unspecified severe protein-calorie malnutrition; J96.21 Acute and chronic respiratory failure with hypoxia; I21.4 Non-ST elevation (NSTEMI) myocardial infarction; J96.22 Acute and chronic respiratory failure with hypercapnia; J44.1 Chronic obstructive pulmonary disease with (acute) exacerbation; J44.0 Chronic obstructive pulmonary disease with (acute) lower respiratory infection; Z68.1 Body mass index [BMI] 19.9 or less, adult; J20.9 Acute bronchitis, unspecified; Z20.822 Contact with and (suspected) exposure to COVID-19; F17.210 Nicotine dependence, cigarettes, uncomplicated; J44.9 Chronic obstructive pulmonary disease, unspecified; I10 Essential (primary) hypertension; N40.0 Benign prostatic hyperplasia without lower urinary tract symptoms; J98.4 Other disorders of lung; Z99.81 Dependence on supplemental oxygen; Z80.3 Family history of malignant neoplasm of breast; Z87.440 Personal history of urinary (tract) infections; Z87.01 Personal history of pneumonia (recurrent)